=== PATIENT | male | born 2000 | race Caucasian/White ===

== ENCOUNTER 2022-04-11 08:12 | Outpatient (CLI) | payer BC, SELFPAY ==
--- NOTE | ~2022-04-11 | XR_ITS ---
Supine and upright views of the abdomen Clinical history: Abdominal pain Findings: Bowel gas pattern is nonspecific. No evidence for obstruction or free air. No abnormal mass lesion or calcification is seen. Osseous structures are intact. Impression: No significant abnormality is seen. Reviewed, dictated and finalized at [facility]. TESTER Impression: No significant abnormality is seen.
== END 2022-04-11 08:13 | disposition home or self-care (01) ==
PROVIDERS: PCP Family Medicine; Visit Provider Physician Assistant
DX: K59.00 Constipation, unspecified (principal)
CPT/HCPCS: 74018

== ENCOUNTER 2022-05-14 10:56 | Outpatient (CLI) | payer BC, SELFPAY ==
[2022-05-18 15:24] LABS: ANCA Screen Negative (Negative); Myeloperoxidase Ab <1.0 AI (<1.0); Proteinase-3 Ab <1.0 AI (<1.0); S cerevisiae Ab (IgG) 5.6 U (<=20.0)
== END 2022-05-14 10:57 | disposition home or self-care (01) ==
PROVIDERS: PCP Family Medicine; Visit Provider Internal Medicine Gastroenterology
DX: R19.4 Change in bowel habit (principal)
CPT/HCPCS: 36415; 86036; 86671

== ENCOUNTER 2022-05-15 08:00 | Outpatient (NON) | payer BC, SELFPAY ==
[2022-05-27 07:46] LABS: Calprotectin, Stool 12
== END 2022-05-15 08:01 | disposition home or self-care (01) ==
LOC: ANHLAB 05-24 12:56
PROVIDERS: PCP Family Medicine; Visit Provider Internal Medicine Gastroenterology
DX: R19.4 Change in bowel habit (principal)
CPT/HCPCS: 83993

== ENCOUNTER 2022-05-20 16:38 | Outpatient (CLI) | payer BC, SELFPAY | END 2022-05-20 16:39 | disposition home or self-care (01) | LOC: ANHLAB 16:39 | PROVIDERS: PCP Family Medicine; Visit Provider Internal Medicine Gastroenterology | DX: R19.7 Diarrhea, unspecified (principal); Z53.8 Procedure and treatment not carried out for other reasons | CPT/HCPCS: 99199; 83993 ==

== ENCOUNTER 2022-08-13 10:27 | Outpatient (CLI) | payer BC, SELFPAY ==
--- NOTE | ~2022-08-13 | US_ITS ---
US abdomen complete EXAMINATION: US Abdomen Complete INDICATION: Abdomen pain PROCEDURE: Realtime High Resolution abdomen ultrasound. COMPARISON: No prior studies for comparison FINDINGS: Gallbladder within normal limits. No gallstones, pericholecystic fluid, gallbladder wall t hickening or biliary dilatation. Common bile duct measures 3 mm. Liver echotexture within normal limits without focal mass. Pancreas within normal limits. Pancreati c tail is obscured by bowel gas. Spleen is unremarkeable. Renal echotexture is within normal limits bilaterally without contour deforming mass or renal stone. There is mild bilateral renal caliectasis, nonspecific. Right kidney measures 11.2 cm. Left kidney measures 11.5 cm. Visualized aspects of the aorta and IVC are within normal limits. Portal vein is patent. No sonograph ic Sellers's sign indicated by the technologist. IMPRESSION: 1: Mild bilateral renal caliectasis. Reviewed, dictated and finalized at location L.
== END 2022-08-13 10:28 | disposition home or self-care (01) ==
PROVIDERS: PCP Family Medicine; Visit Provider Internal Medicine Gastroenterology
DX: R10.9 Unspecified abdominal pain (principal); N28.89 Other specified disorders of kidney and ureter
CPT/HCPCS: 76700

== ENCOUNTER 2022-09-10 08:08 | Outpatient (CLI) | payer BC, SELFPAY ==
--- NOTE | ~2022-09-10 | NM_ITS ---
EXAMINATION: NM hepatobiliary wo pharm DATE: 09/10/2022 11:24 CDT INDICATION: Right upper quadrant pain COMPARISON: Ultrasound dated 08/13/2022 TECHNIQUE: 4.7 mCi Tc-99m mebrofenin (Choletec) was administered intravenously. Scintigraphic images of the abdomen were obtained for one hour. At the 1 hour time point, the patient drank 8 oz Ensure, and imaging was continued for 60 minutes. Gallbladder ejection fraction was calculated by the technol ogist. FINDINGS: There is normal clearance of radiotracer from the blood pool. There is homogeneous tracer u ptake by the liver. Activity progresses to the bowel and gallbladder. The gallbladder ejection fract ion is 70%. Note that with this technique, normal GBEF >= 33%. IMPRESSION: 1. Normal hepatobiliary scan. Reviewed, dictated and finalized at location L.
== END 2022-09-10 08:09 | disposition home or self-care (01) ==
PROVIDERS: PCP Family Medicine; Visit Provider Internal Medicine Gastroenterology
DX: R10.11 Right upper quadrant pain (principal)
CPT/HCPCS: 78226; A9537

== ENCOUNTER 2022-10-11 00:13 | Day surgery (SDC) | payer BC, SELFPAY ==
[2022-09-30 14:54] VITALS: BMI 26.6
--- NOTE | 2022-10-11 10:08 | WPDANESEPPF ---
Anes - Initial Pre Proc Eval Procedure: Operation Date: 10/11/22 13:00 Proposed Procedures p Esophagogastroduodenoscopy & Colonoscopy - Ari Denise MD Date/Time: 10/11/22 10:08 Surgeon: Ari Denise MD Pre Op Diagnosis: Right Upper Quad Pain, change in bowel habits Patient Data Age: 21 Gender: M Height: 1.75 m Weight: 82 kg Allergies Allergy/AdvReac Type Severity Reaction Status Date / Time No Known Allergies Allergy Verified 10/11/22 11:50 Home Medications Medication Instructions Recorded Confirmed Type No Home Medications 09/30/22 10/11/22 History Patient hx anesthesia problems: none Family hx anesthesia problems: none Results Review: All pre-operative results and documents have been reviewed as part of the pre-operative evaluation. [facility] Social History Social History Smoking status: Never smoker Alcohol intake: never Alcohol use details: social Substance use: current Substance use type: marijuana Other substance usage details: EDIBLES OCCASIONALLY Living arrangements: with family Gender identity (if verbalized by the patient): Male Sexual Orientation (if Verbalized by the Patient): Straight or Heterosexual Spiritual care concerns: No Anes - Eval Final PreProcedure Day of Procedure 10/11/22 10:08 Patient weight: overweight Heart: regular rate and rhythm Lungs: clear to auscultation and normal air movement Airway: Mallampati scale class II Neurological: alert and oriented Last oral intake: >/= 8 hours ASA classification: II Emergent: no Anesthetic plan: proceed Anesthesia type and monitoring: general GIVS Results Review: All pre-operative results and documents have been reviewed as part of the pre-operative evaluation. Informed Consent: The patient's anesthetic plan and its attendant risks and benefits were discussed with the patient/family/POA. Questions were solicited and answers provided to the satisfaction of the patient/family/POA.
[2022-10-11 11:50] VITALS: BP 136/88; PULSE 83; RESP 18; TEMP 36.3; O2SAT 99; BMI 26.6
[2022-10-11] MEDS: LACTATED RINGERS 1,000 ML 150 ML IV CONT (12:08)
--- NOTE | 2022-10-11 12:41 | PM.HPGS ---
History of Present Illness History of Present Illness Consent: Risks, benefits, and alternatives have been discussed and questions answered. Patient agrees to proceed with procedure. Chief complaint: Right Upper Quad Pain, change in bowel habits Narrative: Linus Rousseau Jr. is a 21 year old male Who has been having issues with acid reflux for which she has been taking omeprazole. He also has developed a right upper quadrant pain. Since March this year he has been dealing with diarrhea. At 1st he thought it was food poisoning but symptoms persisted even after he had taking Imodium and other products. I had seen him in the office in suggested increasing fiber and a probiotic. This helped for a while but now the stools are again thin and very soft Review of Systems Review of Systems: All systems reviewed & are unremarkable except as noted in HPI and below PMFSH Social History Social History Smoking status: Never smoker Alcohol intake: never Alcohol use details: social Substance use: current Substance use type: marijuana Other substance usage details: EDIBLES OCCASIONALLY Living arrangements: with family Gender identity (if verbalized by the patient): Male Sexual Orientation (if Verbalized by the Patient): Straight or Heterosexual Spiritual care concerns: No Meds Home Medications and Allergies Home Medications Medication Instructions Recorded Confirmed Type No Home Medications 09/30/22 10/11/22 History Allergies Allergy/AdvReac Type Severity Reaction Status Date / Time No Known Allergies Allergy Verified 10/11/22 11:50 Vital Signs Vital Signs - 24 hr 10/11/22 11:50 Temperature 36.3 C L Pulse Rate 83 Respiratory Rate 18 Blood Pressure 136/88 Pulse Oximetry 99 Oxygen Delivery Room Air Exam Const: General: alert Orientation/consciousness: patient oriented x3 Resp: Auscultation: clear to auscultation bilaterally Cardio: Rhythm: regular rhythm GI: GI Palp: Yes Soft to palpation and No Tenderness to palpation present (GI) Neuro: General: patient oriented x3 Assessment and Plan Assessment and plan (1) GERD (gastroesophageal reflux disease): Code(s): K21.9 - Gastro-esophageal reflux disease without esophagitis Status: Acute Assessment and Plan: EGD with possible biopsy or dilatation or cautery. (2) Altered bowel habits: Code(s): R19.4 - Change in bowel habit Status: Acute Assessment and Plan: Colonoscopy with possible biopsy or polypectomy or cautery or injection of substances.
--- NOTE | 2022-10-11 13:34 | SUR.OPER ---
egd ended at 1326 and colonoscopy begun at 1335
[2022-10-11 13:48] VITALS: BP 87/54; PULSE 77; RESP 22; O2SAT 97
[2022-10-11 13:58] VITALS: BP 89/60; PULSE 66; RESP 21; O2SAT 98
[2022-10-11 14:08] VITALS: BP 116/78; PULSE 75; RESP 16; O2SAT 100
== END 2022-10-11 14:20 | disposition home or self-care (01) ==
PROVIDERS: PCP Family Medicine; Visit Provider Internal Medicine Gastroenterology
PROC: 0DJ08ZZ Inspection of Upper Intestinal Tract, Via Natural or Artificial Opening Endoscopic (ICD-10-PCS; CPT 43235; principal; 2022-10-11 13:00)
DX: R19.7 Diarrhea, unspecified (principal); K21.00 Gastro-esophageal reflux disease with esophagitis, without bleeding; F12.90 Cannabis use, unspecified, uncomplicated
CPT/HCPCS: 45380; 43239; 87081; 88305; J2405; J2704; J3010; J7120

== ENCOUNTER 2023-02-20 17:58 | Emergency (ER) | payer BC, SELFPAY ==
--- NOTE | ~2023-02-20 | CT_ITS ---
EXAMINATION: CT abdomen pelvis wo con DATE: 02/20/2023 20:38 INDICATION: Right-sided abdominal pain. Nephrolithiasis. TECHNIQUE: Computed tomography (CT) of the abdomen and pelvis was performed without intravenous contr ast. Automated exposure control and iterative reconstruction technique were employed. The dose-length product was 508.67 mGy-cm. COMPARISON: None FINDINGS: Mild dependent atelectasis at the posterior sulci of the bilateral lower lobes. Heart size is normal. No pericardial or pleural effusion. Liver, gallbladder, spleen, pancreas and bilateral adrenal gland s are normal. 4 mm stone at the right ureterovesicular junction with mild to moderate right hydrouret eronephrosis. There are a couple nonobstructing stones at an upper pole calyx of the left kidney the larger measuring 4 mm. Bladder is normal. Bowels including the appendix are normal. No free intraperi toneal gas or fluid. No pathologically enlarged abdominal or pelvic lymphadenopathy. Likely physiolog ic mild anterior wedging at T12 and L1. IMPRESSION: 1. Bilateral nephrolithiasis with 4 mm obstructing stone at the right ureterovesicular junction with mild to moderate right hydroureteronephrosis. Reviewed, dictated and finalized at location A. /GYN DOCTOR IMPRESSION: 1. Bilateral nephrolithiasis with 4 mm obstructing stone at the right ureterove sicular junction with mild to moderate right hydroureteronephrosis.
--- NOTE | ~2023-02-20 | XR_ITS ---
EXAMINATION: XR abdomen/kub 1V DATE: 02/20/2023 21:37 INDICATION: 4 mm stone at right ureterovesicular junction. TECHNIQUE: A supine view of the abdomen on 2 radiographs was obtained. COMPARISON: CT dated 02/20/2023 FINDINGS: The 4 mm stone at the right ureterovesicular junction is seen projecting along the lateral margin of the inferior sacrum. The 2 stones at the upper pole of the left kidney can be seen in the more cephal ad image. Normal bowel gas pattern. Bones are unremarkable. IMPRESSION: 1. No change in the previously noted stones at the upper pole the left kidney and at the right ureter ovesicular junction. Reviewed, dictated and finalized at location A. TAL GRINDER IMPRESSION: 1. No change in the previously noted stones at the upper pole the left kidney a nd at the right ureterovesicular junction.
[2023-02-20 17:59] VITALS: BP 137/72; PULSE 95; RESP 16; TEMP 36.4; O2SAT 100
[2023-02-20 19:08] LABS: Basophils Percent Auto 0.2 % (0.2-1.2); Hematocrit 44.8 % (42.0-52.0); Hemoglobin 15.5 g/dL (14.0-18.0); Immature Granulocyte Absolute 0.08 K/mm3 (0.00-0.031); Immature Granulocyte Percent A 0.5 % (0-0.5); Lymphocytes Absolute Auto 1.17 K/mm3 (0.9-3.2); Lymphocytes Percent Auto 6.7 % (18.3-44.2); Mean Corpuscular HGB Conc 34.6 g/dl (32-36); Mean Corpuscular Volume 86.8 fl (80-100); Mean Platelet Volume 9.9 fl (7.4-10.4); Monocytes Absolute Auto 1.2 K/mm3 (0.1-0.6); Neutrophils Absolute Auto 14.9 K/mm3 (1.3-6.7); Neutrophils Percent Auto 85.6 % (45.5-73.1); Platelet Count Result 265 k/mm3 (150-375); Red Blood Count 5.16 M/mm3 (4.6-6.20); Red Cell Distribution Width 12.1 % (11.5-14.5); White Blood Count 17.4 K/mm3 (4.5-10.0)
[2023-02-20 19:09] LABS: Alanine Aminotransferase 21 U/L (6-50); Albumin Level 4.8 g/dL (3.5-5.1); Alkaline Phosphatase 52 U/L (38-126); Anion Gap 11 mmol/L (8-16); Aspartate Amino Transferase 30 U/L (17-59); Bilirubin,Total 1.8 mg/dL (0.2-1.3); Blood Urea Nitrogen 17 mg/dL (9-20); Calcium 9.4 mg/dL (8.4-10.2); Carbon Dioxide 27 mmol/L (22-30); Chloride 100 mmol/L (98-107); Estimated CRCL calculation 101 ml/min; Estimated Glomerular Filt Rate > 60; Glucose 117 mg/dL (65-110); Lipase 67 U/L (23-300); Potassium 3.9 mmol/L (3.4-5.0); Sodium 138 mmol/L (137-145)
[2023-02-20 19:36] LABS: Appearance Urine Turbid (Clear); Color Urine Red (Yellow); Glucose Urine UA Negative (Negative); Ketones Urine Negative (Negative); Protein Urine 3+ mg/dL (Negative)
[2023-02-20 19:37] LABS: Add Urine Microscopic? YES; Bilirubin Urine Unable to determine (Negative); Blood Urine 3+ (Negative); Leukocyte Esterase Ur Negative LEU/UL (Negative); Nitrate Urine Negative (Negative); RBC Urine >100 /hpf (0-2); Urobilinogen Urine 0.2 mg/dL (<2.0)
[2023-02-20 19:38] LABS: Bacteria Urine Rare /hpf; Squamous Epithelial Cell Urine None seen /hpf (Few)
[2023-02-20] MEDS: ONDANSETRON INJ 4 MG/2 ML VIAL IV PUSH (20:12)
[2023-02-20] MEDS: SODIUM CHLORIDE 0.9% IV 1,000 ML 999 ML IV CONT (20:12)
--- NOTE | 2023-02-20 20:24 | ED.ABDPAIN ---
HPI - Abdominal Pain General Chief Complaint: Abdominal Pain Stated Complaint: KIDNEY STONE R ABD PAIN Time Seen by Provider: 02/20/23 18:48 Source: patient Mode of arrival: ambulatory Limitations: no limitations History of Present Illness HPI narrative: Patient is a 22-year-old male who presents the ED with report of right-sided abdominal pain, hematuria. Patient reports he developed pain in his right lower abdomen throughout the night last night. Pain was mild at first, progressively worsened this morning. He tried taking ibuprofen and oxycodone without improvement. He notes history of kidney stones and states pain feels similar. Patient last had a kidney stone around 1 year ago which he was able to pass on his own. He does not currently follow with a urologist. Denies significant back or flank pain at this time. Reports hematuria, dysuria, nausea, vomiting. Denies fevers. Denies testicular pain or swelling. Related Data Allergies Allergy/AdvReac Type Severity Reaction Status Date / Time No Known Allergies Allergy Verified 02/20/23 18:57 Review of Systems Review of Systems: CONSTITUTIONAL: Denies fever, chills, or sweats. CARDIOVASCULAR: Denies chest pain. RESPIRATORY: Denies dyspnea. GASTROINTESTINAL: See HPI. GENITOURINARY: See HPI. SKIN: Denies rash or itching. MUSCULOSKELETAL: Denies back pain, flank pain. NEUROLOGIC: Denies headache, numbness, or weakness. All systems reviewed & are unremarkable except as noted in HPI and below PMFSH Social History Social History Smoking status: Never smoker Alcohol intake: never Alcohol use details: social Substance use: current Substance use type: marijuana Other substance usage details: EDIBLES OCCASIONALLY Living arrangements: with family Gender identity (if verbalized by the patient): Male Sexual Orientation (if Verbalized by the Patient): Straight or Heterosexual Spiritual care concerns: No Exam Narrative: GENERAL: Well appearing, well-nourished, non-toxic, in no acute distress. HEAD: Normocephalic, atraumatic. NECK: Supple. No adenopathy, no masses. RESPIRATORY: Airway patent, respirations nonlabored. Clear to auscultation bilaterally, no rales, rhonchi, wheezing. CARDIOVASCULAR: Regular rate and rhythm without murmurs, rubs, or gallops. Radial pulses 2+ and equal bilaterally. ABDOMINAL: Soft, mild tenderness in right lower/lateral abdomen, nondistended, no hepatosplenomegaly. Normoactive BS. No significant CVA tenderness to percussion. MUSCULOSKELETAL: Moves all extremities. No gross deformities. SKIN: Warm, dry, normal color. No rashes. NEURO: A&O X3. Speech clear. Cranial nerves II-XII grossly intact. Steady gait. No ataxic movements. PSYCHIATRIC: Appropriate mood and affect. Normal interaction. Course Vital Signs Vital signs: Vital Signs Temperature 97.6 F 02/20/23 17:59 Pulse Rate 95 02/20/23 17:59 Respiratory Rate 16 02/20/23 17:59 Blood Pressure 137/72 02/20/23 17:59 Pulse Oximetry 100 02/20/23 17:59 Temperature 97.6 F 02/20/23 17:59 Pulse Rate 89 02/20/23 20:31 Respiratory Rate 15 02/20/23 20:31 Blood Pressure 115/55 L 02/20/23 20:47 Pulse Oximetry 100 02/20/23 20:31 MDM - Abdominal Pain MDM Narrative Medical decision making narrative: Patient presents ED with right sided abdominal pain, history of kidney stones that felt similar. Associated with hematuria, nausea, vomiting. Patient's vitals stable upon arrival. Afebrile. In no acute distress. Reporting that pain has improved slightly this evening. CBC with leukocytosis of 17.4. CMP with a stable kidney function. No other significant abnormalities. Bilirubin mildly elevated to 1.8, though remainder of LFTs within normal limits. UA with lots of blood, 10-15 wbc's, negative leuks, negative nitrates. Sent for culture. CT abdomen pelvis obtained and showing 4mm rig
[2023-02-20 20:31] VITALS: BP 112/67; PULSE 89; RESP 15; O2SAT 100
[2023-02-20 20:40] VITALS: BP 190/157
[2023-02-20 20:47] VITALS: BP 115/55
[2023-02-20] MEDS: TAMSULOSIN HCL 0.4 MG CAPSULE PO (21:36)
[2023-02-20 22:01] VITALS: BP 106/60; PULSE 65; RESP 14; O2SAT 99
== END 2023-02-20 22:28 | disposition home or self-care (01) ==
PROVIDERS: General Practice; Emergency Provider Physician Assistant; PCP Family Medicine
DX: N13.2 Hydronephrosis with renal and ureteral calculous obstruction (principal); R31.9 Hematuria, unspecified
CPT/HCPCS: 36415; 74018; 74176; 80053; 81001; 83690; 85025; 87086; 96361; 96374; 99284; A9270; J2405; J7030